=== PATIENT | male | born 1995 | race African-American/Black ===

== ENCOUNTER 2018-02-17 10:28 | Emergency (ER) | payer OTHER ==
[~2018-02-17] VITALS: Ht 172.7 cm; Wt 77.3 kg
[2018-02-17 10:28] VITALS: BP 160/93
[2018-02-17 11:16] LABS: INFLUENZA A AMPLIFICATION NEGATIVE (NEGATIVE); INFLUENZA B AMPLIFICATION NEGATIVE (NEGATIVE)
[2018-02-17] MEDS ORDERED: AMOX500C PO (11:24)
[2018-02-17] MEDS ORDERED: MAGICMW MT (11:25)
== END 2018-02-17 11:33 | disposition home or self-care (01) ==
LOC: M ED 10:28
DX: J02.0 Streptococcal pharyngitis (principal)

== ENCOUNTER 2018-09-21 08:26 | Emergency (ER) | payer OTHER ==
[~2018-09-21] VITALS: Ht 175.3 cm; Wt 77.3 kg
[~2018-09-21 08:26] MED LIST: AMOX500C PO; MAGICMW MT
[2018-09-21 10:54] VITALS: BP 146/81
--- NOTE | 2018-09-24 15:08 | REP ---
TWO-VIEW CHEST: REASON: Cough. COMPARISON: No priors. FINDINGS: The superior mediastinal structures are midline. The cardiac silhouette is unremarkable in size, shape, and position. The diaphragmatic surfaces of the lungs are regular, and the costophrenic angles are clear. The pulmonary robert are clear. The imaged osseous structures are intact. IMPRESSION: There is no acute cardiopulmonary disease. Electronically Signed by Gaurav Giron DO 09/24/2018 05:08 P
== END 2018-09-21 10:59 | disposition home or self-care (01) ==
LOC: M ED 08:26
DX: J02.9 Acute pharyngitis, unspecified (principal)